=== PATIENT | female | born 1940 | race Caucasian/White ===

== ENCOUNTER 2016-09-15 06:42 | Emergency (ER) | payer MEDICARE ==
[~2016-09-15] VITALS: Ht 144.8 cm; Wt 53.2 kg
--- NOTE | 2016-09-15 06:54 | ED.REPORT ---
HPI-Abd Pain F 40 and Over Date of Service Sep 15, 2016 ED Provider: Memo Owens MD 75 year old demented female with a history of gastritis presents to the ER accompanied by her complaining of 7 days of constipation. has given her Miralax and Dulcolax for the past 6 days to treat symptoms with no relief. He denies nausea and vomiting. Patient denies any pain. She lives at home under the care of her , with weekly visits from a home health nurse. Nursing Notes Stated Complaint: NO BOWEL MOVEMENT IN 7 DAYS Nursing Notes Reviewed: Yes Allergies: Coded Allergies: allopurinol (Verified Allergy, Severe, 01/23/16) clindamycin (Verified Allergy, Severe, 01/23/16) lidocaine (Verified Allergy, Unknown, Agitation, 01/23/16) General Time Seen by MD: 06:53 Chief Complaint Constipation Hx Obtained From: Patient Arrived By: Walk-in Sudden in Onset?: No Onset Occurred: 1 week ago Symptom Duration: Since onset Associated with: Denies: Nausea, Vomiting Pertinent Negative: Pt denies other symptoms Similar Sx Previous: Yes Past Medical History Past Medical History Dyclipidemia Restless leg syndrome Gastroesophageal reflux 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 Anxiety Reports: Gastritis, Hypertension, Stroke Past Surgical History Reports: Hysterectomy Smoking History Never Smoker Social History Alcohol Use: Denies alcohol use Drug Use: Denies drug use Other Social History: , Local resident Ambulatory Status Cane Review of Systems Constitutional: Denies: Chills, Fever GI: Reports: Constipation, Denies: Abdominal pain, Nausea, Vomiting Musculoskeletal: Denies: Back pain Complete sys rev & neg: except as marked. Physical Exam Vital Signs Vital Signs (First) Date Time Temp Pulse Resp B/P Pulse Ox O2 Delivery O2 Flow Rate FiO2 09/15/16 06:57 36.4 78 20 171/85 97 Room Air Initial VS: Reviewed Head / Eyes: Atraumatic, Normocephalic Neck: Supple, Non-tender, Full range of motion Extremities: Vascular intact, Neuro intact, No swelling, No tenderness Skin: Warm, Dry, No cyanosis Neurologic: Alert, Oriented, Nonfocal General/Constitutional: Awake, Alert, Well developed, Well nourished Respiratory / Chest: Breath sounds NL, Breath sounds = bilat, No respiratory distress, No rales, No rhonchi, No wheezing Cardiovascular: Heart rate NL, Regular rhythm, Heart sounds NL, Peripheral circulation NL Abdomen: Soft, Non-tender, No guarding, No rebound, No distention Back: Inspection NL, Non-tender, No CVA tenderness Rectum / Perineum: Atraumatic, Blood - occult heme -, No gross blood, No fecal impaction, No fissures, No hemorrhoids, No lesions, Sphincter tone NL Small amount of firm stool. Re-Eval/Medical Decision Source of Hx: Old records Re-Evaluation/Progress : Time of Eval: 07:04 Re-Evaluation/Progress Note: Discussed physical examination findings and plan to discharge. Patient is amenable to the plan. Return precautions given. All other questions addressed. Counseled Regarding: Diagnosis, Need for follow-up, When/why to return to ED Discharge & Departure Primary Impression: Constipation Constipation type: unspecified constipation type Qualified Code: K59.00 - Constipation, unspecified Disposition: Home Discharge Condition All VS Reviewed: Yes Condition: Stable Patient Instructions: Constipation (DC) Additional Instructions: Buy some magnesium citrate and have her drink the entire bottle (about 8-10 oz.) . Continue to give give her MiraLAX once daily, this will help prevent constipation in the future. If this is ineffective, use the prescribed Suprep as directed. Return to the ER if she develops vomiting, fever, blood in her stool, or any other concerning symptoms. Referrals: Benita Johnson (PCP) Christofer Attestation Portions of this note were transcribed by Willie Savage. I, Dr. Owens, personally performed the history, physical exam and medical decision-making; I reviewed and confirmed the accuracy of the information in the transcribed note. Signed by: Christofer Hayes, 09/15/2016 and 07:23 copies to: Benita Johnson Kirk H MD Sep 15, 2016 06:54 WILLIE SAVAGE Sep 15, 2016 06:57
[2016-09-15 06:57] VITALS: BP 171/85; PULSE 78; RESP 20; O2SAT 97
[2016-09-15] MEDS ORDERED: SODI354S PO (07:30)
[2016-09-15 08:09] VITALS: BP 145/67; PULSE 75; RESP 15; O2SAT 100
== END 2016-09-15 08:12 | disposition home or self-care (01) ==
LOC: SED 06:42
DX: K59.00 Constipation, unspecified (principal); K21.9 Gastro-esophageal reflux disease without esophagitis; K29.70 Gastritis, unspecified, without bleeding; I10 Essential (primary) hypertension; E78.5 Hyperlipidemia, unspecified; Z86.73 Personal history of transient ischemic attack (TIA), and cerebral infarction without residual deficits; Z88.8 Allergy status to other drugs, medicaments and biological substances; Z88.1 Allergy status to other antibiotic agents; Z88.4 Allergy status to anesthetic agent